=== PATIENT | female | born 1955 | race Two or more races ===

== ENCOUNTER 2017-05-01 16:23 | Emergency (ER) | payer OTHER ==
[~2017-05-01] VITALS: Ht 149.9 cm; Wt 50.6 kg
[2017-05-01 16:26] VITALS: BP 107/68
== END 2017-05-01 18:36 | disposition home or self-care (01) ==
LOC: ED 17:15
DX: S60.211A Contusion of right wrist, initial encounter (principal); G89.11 Acute pain due to trauma; X58.XXXA Exposure to other specified factors, initial encounter; Y93.89 Activity, other specified; Y92.69 Other specified industrial and construction area as the place of occurrence of the external cause; Y99.8 Other external cause status
CPT/HCPCS: 29125